=== PATIENT | female | born 1995 | race Caucasian/White ===

== ENCOUNTER → 2023-09-26 | Outpatient (CLI) | payer OTHER ==
[~2023-09-26] MED LIST: Iohexol 300 - 100 ML VIAL IV ONE
== END ==
LOC: COL.RAD 14:08
DX: N80.9 Endometriosis, unspecified (principal)
CPT/HCPCS: Q9967

== ENCOUNTER 2024-02-13 08:10 | Day surgery (SDC) | payer OTHER ==
[~2024-02-13] VITALS: Ht 167.6 cm; Wt 72.8 kg
[~2024-02-13 08:10] MED LIST changes: -Iohexol 300 - 100 ML VIAL IV ONE; +LR 1,000 ML IV SCH; +Ondansetron 4 MG/2 ML VIAL IV PRN
[2024-02-13] MEDS ORDERED: ASPIRIN 81M81 MG/TA2 PO (08:48)
[2024-02-13] MEDS ORDERED: Lidocaine PF 2% (20 MG/ML) 5 ML VIAL ONE (09:50)
[2024-02-13 10:35] VITALS: BP 107/71; PULSE 73; TEMP 98.2
[2024-02-13 10:40] VITALS: BP 119/83; PULSE 73; TEMP 97.5
[2024-02-13 10:45] VITALS: BP 111/80; PULSE 78
--- NOTE | 2024-02-13 11:36 | NUR ---
1035- PT RETURNS FROM ENDO PROCEDURE VIA CART AND RN ASSIST TO [facility] 4. PT AMBULATES FROM CART TO RECLINER WITH ASSIST. MONITORS ON AND ALARMS SET. CALL LIGHT WITHIN REACH. REPORT RECEIVED FROM JUAN MARCH. PT ALERT AND ORIENTED. PT REQUESTS FOOD AND DRINK. PT DENIES ANY PAIN OR NAUSEA. 1045- PT TAKING FOOD AND DRINK WELL. NO COMPLICATIONS NOTED. 1125- UPON WALKING INTO PT'S ROOM AFTER DR. LAIRD TALKED [facility] PT, PT WAS GONE. DISCHARGE PAPERWORK AND INSTRUCTIONS WERE NOT GIVEN TO PT.
== END 2024-02-13 11:15 ==
LOC: SDCO 08:10
DX: K64.0 First degree hemorrhoids (principal); K62.89 Other specified diseases of anus and rectum; K59.00 Constipation, unspecified; N80.9 Endometriosis, unspecified; R15.2 Fecal urgency; Z98.890 Other specified postprocedural states; Z79.899 Other long term (current) drug therapy
CPT/HCPCS: J2704; J7120